=== PATIENT | female | born 1995 | race Caucasian/White ===

== ENCOUNTER 2023-08-18 09:32 | Emergency (ER) | payer OTHER ==
[~2023-08-18] VITALS: Ht 170.2 cm; Wt 79.9 kg
[2023-08-18 10:16] LABS: Urine Bacteria None Seen /hpf (None Seen)
[2023-08-18 10:50] LABS: Urine Blood Negative /uL (Negative); Urine Clarity Clear (Clear); Urine Color Light-Yellow (Yellow); Urine Mucus FEW (None Seen); Urine Protein, UAD Negative (Negative); Urine Urobilinogen Normal (Negative); Urine WBC 1 /hpf (0 - 5); Urine pH 5.5 (5.0-9.0)
[2023-08-18 12:36] VITALS: BP 118/71; PULSE 61; RESP 18; TEMP 98.1; O2SAT 97
== END 2023-08-18 12:37 | disposition home or self-care (01) ==
LOC: ER 09:32
DX: N83.202 Unspecified ovarian cyst, left side (principal); R10.2 Pelvic and perineal pain; E11.9 Type 2 diabetes mellitus without complications; Z79.1 Long term (current) use of non-steroidal anti-inflammatories (NSAID)
CPT/HCPCS: 76856; 81001; 81025